=== PATIENT | male | born 1980 | race African-American/Black ===

== ENCOUNTER 2019-10-03 22:43 | Observation (INO) | payer SELFPAY ==
[2019-10-03] MEDS ORDERED: NA CHLORIDE 0.9% 1,000 ML ONE (23:13)
[2019-10-03] MEDS ORDERED: ASPIRIN 81 MG CHEWABLE TABLET ONE (23:13)
[2019-10-03 23:14] LABS: Absolute Lymphocytes (CBC) 4.5 K/uL (0.7-4.9); Basophils % 0.2 % (0-1.3); Hematocrit 42.4 % (39.6-49.0); MPV 8.7 fL (7.6-11.3); RBC Red Blood Cell Count 4.73 M/uL (4.33-5.43)
[2019-10-03 23:15] LABS: Protime INR 1.01
[2019-10-03 23:46] LABS: ALT/SGPT 42 U/L (12-78); AST/SGOT 25 U/L (15-37); Albumin 3.6 g/dL (3.4-5.0); Alkaline Phosphatase 81 U/L (45-117); BUN Blood Urea Nitrogen 12 mg/dL (7-18); Bicarbonate 30 mmol/L (21-32); Bilirubin Direct < 0.1 mg/dL (0-0.2); Bilirubin Total 0.3 mg/dL (0.2-1.0); Glucose Level 164 mg/dL (74-106); Lipase 156 U/L (73-393); Magnesium 1.9 mg/dL (1.8-2.4); NT PRO-BNP 15 pg/mL (<125); Potassium 3.6 mmol/L (3.5-5.1); Protein, Total 7.4 g/dL (6.4-8.2); Sodium Level 141 mmol/L (136-145); Troponin (Emerg Dept Use Only) < 0.02 ng/mL (0.0-0.045)
[2019-10-04] LABS: Blood Morphology Comment NOT SEEN (NOT SEEN); Platelet Estimate ADEQ
[2019-10-04 00:13] LABS: Barbiturates NEGATIVE (NEGATIVE); Benzodiazepines NEGATIVE (NEGATIVE); Cocaine NEGATIVE (NEGATIVE); METHAMPHETAM NEGATIVE (NEGATIVE); Methadone NEGATIVE (NEGATIVE); Opiates POSITIVE (NEGATIVE); Phencyclidine NEGATIVE (NEGATIVE); THC Cannibis NEGATIVE (NEGATIVE)
--- NOTE | 2019-10-04 00:13 | ER ---
Nurse's Notes [facility] Name: Ricky Garvin Age: 39 yrs Sex: Male : 1980 Arrival Date: 10/03/2019 Time: 22:45 Bed 17 Private MD: Diagnosis: Essential (primary) hypertension;Chest pain, unspecified;Tachycardia, unspecified Presentation: 10/03 22:52 Presenting complaint: Patient states: stabbing in center of chest that started at 2130. ls4 Pt states it doesn't hurt much when he is sitting still but when he moves it gets up to a 5/10. Transition of care: patient was not received from another setting of care. Onset of symptoms was October 03, 2019 at 22:53. Risk Assessment: Do you want to hurt yourself or someone else? Patient reports no desire to harm self or others. Initial Sepsis Screen: Does the patient meet any 2 criteria? No. Patient's initial sepsis screen is negative. Does the patient have a suspected source of infection? No. Patient's initial sepsis screen is negative. Care prior to arrival: None. 22:52 Method Of Arrival: Ambulatory ls4 22:52 Acuity: HANK 3 ls4 Triage Assessment: 22:53 General: Appears in no apparent distress. Behavior is calm, cooperative. Pain: ls4 Complains of pain in mid-sternal area Pain currently is 2 out of 10 on a pain scale. Quality of pain is described as stabbing, Pain began suddenly, 1 hour ago. Cardiovascular: Reports chest pain, Denies diaphoresis, fatigue, lightheadedness, nausea, palpitations, shortness of breath, syncope, vomiting, Capillary refill < 3 seconds JVD is absent Patient's skin is warm and dry. Respiratory: Airway is patent Respiratory effort is even, unlabored, Respiratory pattern is regular, symmetrical, Breath sounds are clear. GI: No deficits noted. : No deficits noted. Derm: Skin is pink, warm \T\ dry. Musculoskeletal: No deficits noted. Historical: - Allergies: 22:53 Azithromycin; ls4 - Home Meds: 22:53 None [Active]; ls4 - PMHx: 22:53 None; ls4 - PSHx: 22:53 None; ls4 - Immunization history:: Adult Immunizations up to date. - Coronavirus screen:: The patient has NOT traveled to [place], [place], or [place] in the past 14 days. The patient has NOT had contact with known/suspected case of Coronavirus? Proceed with normal triage procedures. - Social history:: Smoking status: Patient reports the use of cigarette tobacco products, smokes one pack cigarettes per day. - Family history:: not pertinent. - Ebola Screening: : No symptoms or risks identified at this time. Screenin:58 Abuse screen: Denies threats or abuse. Denies injuries from another. Nutritional ls4 screening: No deficits noted. Tuberculosis screening: No symptoms or risk factors identified. Fall Risk None identified. Assessment: 23:20 Reassessment: Patient appears in no apparent distress at this time. Patient and/or ch family updated on plan of care and expected duration. Pain level reassessed. Patient is alert, oriented x 3, equal unlabored respirations, skin warm/dry/pink. 23:20 General: Appears in no apparent distress. uncomfortable. ls4 23:20 Pain: Complains of pain in chest and mid-sternal area Pain does not radiate. Pain ls4 currently is 2 out of 10 on a pain scale. Neuro: No deficits noted. Cardiovascular: Reports chest pain, Denies diaphoresis, fatigue, lightheadedness, nausea, palpitations, shortness of breath, syncope, vomiting, Heart tones S1 S2 Capillary refill < 3 seconds Clubbing of nail beds is absent Patient's skin is warm and dry. Rhythm is regular. Respiratory: No deficits noted. GI: No deficits noted. : No deficits noted. Derm: No deficits noted. 10/04 00:20 Reassessment: Patient appears in no apparent distress at this time. Patient and/or ch family updated on plan of care and expected duration. Pain level reassessed. Patient is alert, oriented x 3, equal unlabored respirations, skin warm/dry/pink. 01:24 Reassessment: Patient appears in no apparent distress at this time. [employer] is down, ch awaiting pt to go upstairs till pt orders can be accessed. 02:08 Reassessment: Patient appears in no apparent distress at this time. Patient and/or ls4 family updated on plan of care and expected duration. Pain level reassessed. Patient is alert, oriented x 3, equal unlabored respirations, skin warm/dry/pink. Pain: Complains of pain in chest and mid-sternal area Pain does not radiate. Pain currently is 2 out of 10 on a pain scale. Vital Signs: 10/03 22:53 BP 132 / 89; Pulse 132; Resp 16; Temp 98.1(O); Pulse Ox 100% on R/A; Weight 90.72 kg; ls4 Height 5 ft. 9 in. (175.26 cm); Pain 2/10; 10/04 00:21 BP 137 / 78; Pulse 109; Resp 16; Temp 98.2(O); Pulse Ox 100% on R/A; Pain 2/10; ls4 01:48 BP 118 / 73; Pulse 83; Resp 16; Temp 98.6; Pulse Ox 99% on R/A; Pain 0/10; ch 02:00 BP 114 / 75; Pulse 82; Resp 14; Temp 98.2(O); Pulse Ox 100% on R/A; Pain 2/10; ls4 10/03 22:53 Body Mass Index 29.54 (90.72 kg, 175.26 cm) ls4 ED Course: 10/03 22:45 Patient arrived in ED. jg7 22:48 Nikunj Segundo MD is Attending Physician. elif 22:52 Akanksha Colin RN is Primary Nurse. ls4 22:53 Radiology exam delayed due to ekg. 22:53 Triage completed. ls4 22:58 Patient has correct armband on for positive identification. Placed in gown. Bed in low ls4 position. Call light in reach. Side rails up X2. press tender long goods on. Pulse ox on. NIBP on. Warm blanket given. Diet: Patient is NPO. 22:58 Arm band placed on. ls4 22:58 EKG completed in triage. Results shown to MD. ls4 22:58 No provider procedures requiring assistance completed. Inserted saline lock: 20 gauge ls4 in right antecubital area, using aseptic technique. Patient maintains SpO2 saturation greater than 95% on room air. 23:32 UDS Sent. ls4 23:32 Lipase Sent. ls4 23:33 Urine Dipstick--Ancillary (enter results) Sent. ls4 23:33 Basic Metabolic Panel Sent. ls4 23:33 CBC with Diff Sent. ls4 23:33 LFT's Sent. ls4 23:33 Magnesium Sent. ls4 23:33 NT PRO-BNP Sent. ls4 23:33 PT-INR Sent. ls4 23:33 Troponin (emerg Dept Use Only) Sent. ls4 23:33 XRAY Chest (1 view) Sent. ls4 10/04 00:12 Yasir Nesbitt is Hospitalizing Provider. elif 02:14 Patient admitted, IV remains in place. intact, No redness/swelling at site. ls4 Administered Medications: 10/03 23:30 Drug: Lopressor (metoprolol TARTRATE) 50 mg Route: PO; ls4 10/04 00:00 Follow up: Response: No adverse reaction ls4 10/03 23:32 Drug: NS 0.9% 1000 ml Route: IV; Rate: 1 bolus; Site: right antecubital; ls4 10/04 00:30 Follow up: IV Status: Completed infusion; IV Intake: 1000ml ls4 10/03 23:32 Drug: Aspirin Chewable Tablet 324 mg Route: PO; ls4 10/04 00:00 Follow up: Response: No adverse reaction ls4 00:30 Drug: Lovenox 90 mg Route: Sub-Q; Site: left lower abdomen; ls4 01:00 Follow up: Response: No adverse reaction ls4 Intake: 00:30 IV: 1000ml; Total: 1000ml. ls4 Outcome: 00:13 Decision to Hospitalize by Provider. elif 02:12 Admitted to Tele accompanied by nurse, room 214, on monitor, with chart, Report called ls4 to larissa 02:12 Condition: good 02:12 Discharge instructions given to patient, family, Instructed on the need for admit. 02:17 Patient left the ED. ls4 Signatures: Dorothy Braun, RN Nikunj Bartholomew ch, MD MD cha Faul, Justin jf Stewart, Lisa, RN RN ls4 Jacquelin Vivas jg7 Corrections: (The following items were deleted from the chart) 00:19 02/04 22:53 BP 132 / 89; Pulse 132bpm; Resp 16bpm; Pulse Ox 100% RA; Temp 98.1F Oral; ls4 Pain 2/10; ls4
--- NOTE | 2019-10-04 00:14 | EDPHYS ---
Physician Documentation [facility] Name: Ricky Garvin Age: 39 yrs Sex: Male : 1980 Arrival Date: 10/03/2019 Time: 22:45 Bed 17 Private MD: ED Physician Nikunj Segundo HPI: 10/03 23:04 This 39 yrs old Black Male presents to ER via Ambulatory with complaints of Chest Pain. elif 23:04 This 39 yrs old Black Male presents to ER via Ambulatory with complaints of Chest Pain. elif 23:04 The patient or guardian reports chest pain that is located primarily in the substernal elif area, anterior chest wall, left. Onset: just prior to arrival. The pain does not radiate. Associated signs and symptoms: The patient has no apparent associated signs or symptoms. The chest pain is described as sharp. Modifying factors: The symptoms are alleviated by remaining still, the symptoms are aggravated by movement, twisting torso. Severity of pain: At its worst the pain was mild in the emergency department the pain is unchanged. The patient has not experienced similar symptoms in the past. Historical: - Allergies: 22:53 Azithromycin; ls4 - Home Meds: 22:53 None [Active]; ls4 - PMHx: 22:53 None; ls4 - PSHx: 22:53 None; ls4 - Immunization history:: Adult Immunizations up to date. - Coronavirus screen:: The patient has NOT traveled to [place], [place], or [place] in the past 14 days. The patient has NOT had contact with known/suspected case of Coronavirus? Proceed with normal triage procedures. - Social history:: Smoking status: Patient reports the use of cigarette tobacco products, smokes one pack cigarettes per day. - Family history:: not pertinent. - Ebola Screening: : No symptoms or risks identified at this time. ROS: 23:04 Constitutional: Negative for fever, chills, and weight loss, Eyes: Negative for injury, elif pain, redness, and discharge, ENT: Negative for injury, pain, and discharge, Neck: Negative for injury, pain, and swelling, Cardiovascular: Negative for chest pain, palpitations, and edema, Respiratory: Negative for shortness of breath, cough, wheezing, and pleuritic chest pain, Abdomen/GI: Negative for abdominal pain, nausea, vomiting, diarrhea, and constipation, Back: Negative for injury and pain, : Negative for injury, bleeding, discharge, and swelling, MS/Extremity: Negative for injury and deformity, Skin: Negative for injury, rash, and discoloration, Neuro: Negative for headache, weakness, numbness, tingling, and seizure, Psych: Negative for depression, anxiety, suicide ideation, homicidal ideation, and hallucinations, Allergy/Immunology: Negative for hives, rash, and allergies, Endocrine: Negative for neck swelling, polydipsia, polyuria, polyphagia, and marked weight changes, Hematologic/Lymphatic: Negative for swollen nodes, abnormal bleeding, and unusual bruising. Exam: 23:06 Constitutional: This is a well developed, well nourished patient who is awake, alert, elif and in no acute distress. Head/Face: Normocephalic, atraumatic. Eyes: Pupils equal round and reactive to light, extra-ocular motions intact. Lids and lashes normal. Conjunctiva and sclera are non-icteric and not injected. Cornea within normal limits. Periorbital areas with no swelling, redness, or edema. ENT: Nares patent. No nasal discharge, no septal abnormalities noted. Tympanic membranes are normal and external auditory canals are clear. Oropharynx with no redness, swelling, or masses, exudates, or evidence of obstruction, uvula midline. Mucous membranes moist. Neck: Trachea midline, no thyromegaly or masses palpated, and no cervical lymphadenopathy. Supple, full range of motion without nuchal rigidity, or vertebral point tenderness. No Meningismus. Chest/axilla: Normal chest wall appearance and motion. Nontender with no deformity. No lesions are appreciated. Respiratory: Lungs have equal breath sounds bilaterally, clear to auscultation and percussion. No rales, rhonchi or wheezes noted. No increased work of breathing, no retractions or nasal flaring. Abdomen/GI: Soft, non-tender, with normal bowel sounds. No distension or tympany. No guarding or rebound. No evidence of tenderness throughout. Back: No spinal tenderness. No costovertebral tenderness. Full range of motion. Male : Normal genitalia with no discharge or lesions. Skin: Warm, dry with normal turgor. Normal color with no rashes, no lesions, and no evidence of cellulitis. MS/ Extremity: Pulses equal, no cyanosis. Neurovascular intact. Full, normal range of motion. Neuro: Awake and alert, GCS 15, oriented to person, place, time, and situation. Cranial nerves II-XII grossly intact. Motor strength 5/5 in all extremities. Sensory grossly intact. Cerebellar exam normal. Normal gait. Psych: Awake, alert, with orientation to person, place and time. Behavior, mood, and affect are within normal limits. 23:06 Cardiovascular: Rate: tachycardic, Rhythm: regular, Pulses: Pulses are 4+ in bilateral radial, brachial, femoral, popliteal, posterior tibial and and dorsalis pedis arteries.. Heart sounds: normal, Edema: is not appreciated, JVD: is not appreciated. Vital Signs: 22:53 BP 132 / 89; Pulse 132; Resp 16; Temp 98.1(O); Pulse Ox 100% on R/A; Weight 90.72 kg; ls4 Height 5 ft. 9 in. (175.26 cm); Pain 2/10; 10/04 00:21 BP 137 / 78; Pulse 109; Resp 16; Temp 98.2(O); Pulse Ox 100% on R/A; Pain 2/10; ls4 01:48 BP 118 / 73; Pulse 83; Resp 16; Temp 98.6; Pulse Ox 99% on R/A; Pain 0/10; ch 02:00 BP 114 / 75; Pulse 82; Resp 14; Temp 98.2(O); Pulse Ox 100% on R/A; Pain 2/10; ls4 10/03 22:53 Body Mass Index 29.54 (90.72 kg, 175.26 cm) 4 MDM: 10/03 22:48 Patient medically screened. [facility] 23:06 Data reviewed: vital signs, nurses notes, lab test result(s), EKG, radiologic studies, [facility] CT scan, plain films. 10/03 22:49 Order name: Basic Metabolic Panel 10/03 22:49 Order name: CBC with Diff 10/03 22:49 Order name: LFT's 10/03 22:49 Order name: Magnesium 10/03 22:49 Order name: NT PRO-BNP 10/03 22:49 Order name: PT-INR 10/03 22:49 Order name: Troponin (emerg Dept Use Only) 10/03 23:04 Order name: Lipase [facility] 10/03 23:04 Order name: UDS [facility] 10/03 23:15 Order name: CBC with Automated Diff; Complete Time: 00:09 EDMS 10/03 23:16 Order name: Protime (+INR); Complete Time: 00:09 EDMS 10/03 23:21 Order name: Urine Dipstick--Ancillary (enter results) wi 10/03 23:46 Order name: Basic Metabolic Panel; Complete Time: 00:09 EDMS 10/03 23:46 Order name: Liver (Hepatic) Function; Complete Time: 00:09 EDMS 10/03 22:49 Order name: XRAY Chest (1 view) 10/03 22:49 Order name: EKG; Complete Time: 22:49 10/03 22:49 Order name: Cardiac monitoring; Complete Time: 22:59 10/03 22:49 Order name: EKG - Nurse/Tech; Complete Time: 22:59 10/03 22:49 Order name: IV Saline Lock; Complete Time: 22:59 10/03 23:46 Order name: Troponin (Emerg Dept Use Only); Complete Time: 00:09 EDCA 10/03 23:46 Order name: NT PRO-BNP; Complete Time: 00:09 EDMS 10/03 23:46 Order name: Magnesium; Complete Time: 00:09 EDCA 10/03 23:46 Order name: Lipase; Complete Time: 00:09 EDMS 10/04 00:01 Order name: Manual Differential; Complete Time: 00:09 EDMS 10/04 00:13 Order name: Urine Drug Screen; Complete Time: 00:13 EDCA 10/04 00:44 Order name: Urine Dipstick-Ancillary [facility] 10/03 22:49 Order name: Labs collected and sent; Complete Time: 23:00 10/03 22:49 Order name: O2 Per Protocol; Complete Time: 23:00 10/03 22:49 Order name: O2 Sat Monitoring; Complete Time: 23:00 ch Administered Medications: 23:30 Drug: Lopressor (metoprolol TARTRATE) 50 mg Route: PO; 4 10/04 00:00 Follow up: Response: No adverse reaction 4 10/03 23:32 Drug: NS 0.9% 1000 ml Route: IV; Rate: 1 bolus; Site: right antecubital; 4 10/04 00:30 Follow up: IV Status: Completed infusion; IV Intake: 1000ml 4 10/03 23:32 Drug: Aspirin Chewable Tablet 324 mg Route: PO; 4 10/04 00:00 Follow up: Response: No adverse reaction ls4 00:30 Drug: Lovenox 90 mg Route: Sub-Q; Site: left lower abdomen; ls4 01:00 Follow up: Response: No adverse reaction ls4 Disposition: 10/04/19 00:13 Hospitalization ordered by Yasir Nesbitt for Observation. Preliminary diagnosis are Essential (primary) hypertension, Chest pain, unspecified, Tachycardia, unspecified. - Bed requested for Telemetry/MedSurg (observation). - Status is Observation. ls4 - Condition is Fair. - Problem is new. - Symptoms have improved. Signatures: Dispatcher [employer] EDMS Dorothy Braun, RN Nikunj Bartholomew ch, MD MD cha Bryson, James, RN RN jb4 Akanksha Colin RN RN ls4 Corrections: (The following items were deleted from the chart) 00:18 00:13 Hospitalization Ordered by Yasir Nesbitt for Observation. Preliminary diagnosis jb4 is Essential (primary) hypertension; Chest pain, unspecified; Tachycardia, unspecified. Bed requested for Telemetry/MedSurg (observation). Status is Observation. Condition is Fair. Problem is new. Symptoms have improved. [facility] 02:17 00:18 10/04/2019 00:13 Hospitalization Ordered by Yasir Nesbitt for Observation. ls4 Preliminary diagnosis is Essential (primary) hypertension; Chest pain, unspecified; Tachycardia, unspecified. Bed requested for Telemetry/MedSurg (observation). Status is Observation. Condition is Fair. Problem is new. Symptoms have improved. jb4
[2019-10-04] MEDS ORDERED: ENOXAPARIN 100 MG/ML SYR SQ ONE (00:33)
[2019-10-04] MEDS ORDERED: METOPROLOL XL 50 MG TAB PO ONE (00:33)
[2019-10-04] MEDS ORDERED: METOPROLOL TAR 50 MG TAB ONE (00:37)
[2019-10-04 00:44] LABS: Urine Blood NEGATIVE (NEG); Urine Glucose NEGATIVE (NEG); Urine Protein NEGATIVE (NEG); Urine Specific Gravity 1.015 (1.005-1.030)
--- NOTE | 2019-10-04 00:46 | P.HP ---
Certification for Inpatient Patient admitted to: Observation With expected LOS: <2 Midnights Practitioner: I am a practitioner with admitting privileges, knowledge of patient current condition, hospital course, and medical plan of care. Services: Services provided to patient in accordance with Admission requirements found in Title 42 Section 412.3 of the Code of Federal Regulations Patient History Date of Service: 10/04/19 Reason for admission: Chest pain History of Present Illness: 39-year-old man with no known past medical history presented to the emergency department with a complaint of chest pain of onset a few hrs ago. Patient described a sharp anterior chest pain which occured at rest, maximum intensity 8/10, nonradiating, intermittent, no relieving factors, no response to aspirin. Initial troponin in the ED is negative. EKG demonstrated sinus tachycardia, no ischemic changes. Urine toxicology screen positive for opioid. Patient stated he took a dose of hydrocodone for his back pain a couple of days ago. He is a smoker. His heart rate was in the 130s in the ED. Patient is placed under observation for ACS rule out. Allergies azithromycin Allergy (Verified 10/04/19 03:09) Unknown Home Medications: Aspirin [Aspirin EC 81 MG] 81 mg PO DAILY #30 tablet.dr 10/04/19 Metoprolol Succinate 25 mg PO DAILY #30 tab.er.24h 10/04/19 Nicotine [Nicotine Patch] 1 each TD DAILY #14 patch.td24 10/04/19 Pravastatin Sodium [Pravachol] 20 mg PO DAILY #30 tablet 10/04/19 - Past Medical/Surgical History Diabetic: No -: None -: None - Family History Family History: Reviewed- Non-Contributory - Social History Smoking Status: Current every day smoker Alcohol use: Yes CD- Drugs: No Place of Residence: Home Review of Systems Other: General: No fever, no malaise, no unintentional weight loss. Eyes: No eye discharge, Respiratory: No cough, no shortness of breath. CVS: No palpitation, no lightheadedness. GI: No abdominal pain, no nausea, no vomit, no constipation, no diarrhea. Genitourinary: No dysuria, no urinary frequency, no incontinence, no hematuria. Musculoskeletal: No joint pains, or joint swelling, no gait instability. Neurology: No headache, no asymmetric weakness, no problem with swallowing. Except as documented, all other systems reviewed and negative. Physical Examination - Physical Exam General: Alert, In no apparent distress, Oriented x3 HEENT: Atraumatic, Normocephalic, Mucous membr. moist/pink, Sclerae nonicteric Neck: Supple, JVD not distended Respiratory: Clear to auscultation bilaterally, Normal air movement Cardiovascular: No edema, Regular rate/rhythm, Normal S1 S2 Capillary refill: <2 Seconds Gastrointestinal: Normal bowel sounds, Soft and benign, Non-distended, No tenderness Musculoskeletal: No swelling, No erythema Integumentary: No rashes Neurological: Normal speech, Normal strength at 5/5 x4 extr - Studies Laboratory Data (last 24 hrs) 10/03/19 23:04: Lipase Cancelled 10/03/19 23:00: PT 11.9, INR 1.01 10/03/19 23:00: WBC 7.6, Hgb 14.5, Hct 42.4, Plt Count 299 10/03/19 23:00: Sodium 141, Potassium 3.6, BUN 12, Creatinine 1.12, Glucose 164 H, Magnesium 1.9, Total Bilirubin 0.3, AST 25, ALT 42, Alkaline Phosphatase 81, Lipase 156 Assessment and Plan - Problems (Diagnosis) (1) Chest pain Status: Acute (2) Sinus tachycardia Status: Acute (3) Tobacco use Status: Acute - Plan Place under observation Trend troponin Start aspirin Pain management as needed Check lipid profile. Low cardiac risk factors. Low-dose metoprolol for sinus tachycardia - Advance Directives Does patient have a Living Will: No Does patient have a Durable POA for Healthcare: No
[2019-10-04] MEDS ORDERED: NITROGLYCERIN 0.4 MG/TAB SL PRN (03:07)
[2019-10-04] MEDS ORDERED: ACETAMINOPHEN 500 MG TAB PO PRN (03:07)
[2019-10-04] MEDS ORDERED: MORPHINE 4 MG/ML SYR IV PRN (03:07)
[2019-10-04 03:17] VITALS: BMI 29.7
[2019-10-04 03:24] LABS: HDL Cholesterol 38 mg/dL (40-60); Troponin I < 0.02 ng/mL (0.0-0.045)
[2019-10-04 03:40] LABS: LDL, Direct 132 mg/dL (100-129)
[2019-10-04 08:18] VITALS: BP 118/72; TEMP 97.1
--- NOTE | 2019-10-04 08:33 | RAD REPORT ---
EXAM DESCRIPTION: Jerald Single View10/03/2019 11:38 pm CLINICAL HISTORY: Chest pain COMPARISON: none FINDINGS: The lungs appear clear of acute infiltrate. The heart is normal size IMPRESSION: No acute abnormalities displayed
[2019-10-04] MEDS ORDERED: ASPIRIN EC 81 MG TAB PO SCH (09:00)
[2019-10-04] MEDS ORDERED: ENOXAPARIN 40 MG/0.4 ML SQ SCH (09:00)
[2019-10-04] MEDS ORDERED: METOPROLOL TAR 50 MG TAB PO SCH (09:00)
--- NOTE | 2019-10-04 09:10 | EKG ---
Test Date: 2019-10-03 Test Time: 22:53:50 Osteopathy Doctor: NEHEMIAH MEASUREMENT RESULTS: Intervals: Rate: 131 NV: 138 QRSD: 92 QT: 298 QTc: 440 [place]: P: 43 NV: 138 QRS: 38 T: 46 INTERPRETIVE STATEMENTS: Sinus tachycardia Otherwise normal ECG No previous ECG available for comparison Electronically Signed On 10-04-19 09:09:56 HANDLE AND VENT MACHINE OPERATOR by Luis Alfredo Ferrer
[2019-10-04 09:21] VITALS: O2SAT 100
--- NOTE | 2019-10-04 10:21 | P.DS ---
Admission Date: 10/04/19 Discharge Date: 10/04/19 Disposition: ROUTINE DISCHARGE Comment: Discharge Condition: FAIR Reason for Admission: Chest pain Brief History of Present Illness: History of Present Illness: 39-year-old man with no known past medical history presented to the emergency department with a complaint of chest pain of onset a few hrs ago. Patient described a sharp anterior chest pain which occured at rest, maximum intensity 8/10, nonradiating, intermittent, no relieving factors, no response to aspirin. Initial troponin in the ED is negative. EKG demonstrated sinus tachycardia, no ischemic changes. Urine toxicology screen positive for opioid. Patient stated he took a dose of hydrocodone for his back pain a couple of days ago. He is a smoker. His heart rate was in the 130s in the ED. Patient is placed under observation for ACS rule out. Hospital Course: Patient with history of tobacco use. No family history for gastric issues was admitted for atypical left-sided chest pain that was sharp. Pain resolved in the emergency room. The patient was admitted and placed on telemetry. He had no cardiac arrhythmia as well as no EKG changes. He remained chest pain-free. His cardiac enzymes were all negative. Patient workup shows mild elevated lipid profile with triglyceride 0410 on cholesterol 119. Need for lifestyle modification was discussed. Medication option was offered and patient agreeable to trial of Pravachol at this time. Risk of liver injury mentioned and discussed . follow-up in 3 months with PCP advised . Case management help with insurance application and free clinic infomation was provided. Need for tobacco cessation discussed. Patient is currently symptom-free will be discharged home today. On admission he was noted with transient tachycardia was started on low-dose metoprolol weeks significant improvement in his heart rate to the low 60s now. He describes symptoms of obstructive sleep apnea and advised to obtain a sleep study as outpatient Vital Signs/Physical Exam: Temp Pulse Resp BP Pulse Ox 97.1 F 67 17 118/72 100 10/04/19 08:00 10/04/19 08:00 10/04/19 08:00 10/04/19 08:00 10/04/19 08:00 General: Alert, In no apparent distress, Oriented x3 HEENT: Atraumatic, Normocephalic, PERRLA Neck: 2+ carotid pulse no bruit, JVD not distended Respiratory: Clear to auscultation bilaterally, Normal air movement Cardiovascular: No edema, Regular rate/rhythm, Normal S1 S2 Gastrointestinal: Normal bowel sounds, Soft and benign, Non-distended Musculoskeletal: No clubbing, No swelling Integumentary: No rashes, No breakdown Neurological: Normal speech, Normal strength at 5/5 x4 extr, Sensation intact Rectal: Normal Laboratory Data at Discharge: WBC 7.6 K/uL (4.3-10.9) 10/03/19 23:00 Hgb 14.5 g/dL (13.6-17.9) 10/03/19 23:00 Hct 42.4 % (39.6-49.0) 10/03/19 23:00 Plt Count 299 K/uL (152-406) 10/03/19 23:00 PT 11.9 SECONDS (9.5-12.5) 10/03/19 23:00 INR 1.01 10/03/19 23:00 Sodium 141 mmol/L (136-145) 10/03/19 23:00 Potassium 3.6 mmol/L (3.5-5.1) 10/03/19 23:00 BUN 12 mg/dL (7-18) 10/03/19 23:00 Creatinine 1.12 mg/dL (0.55-1.3) 10/03/19 23:00 Glucose 164 mg/dL (74-106) H 10/03/19 23:00 Magnesium 1.9 mg/dL (1.8-2.4) 10/03/19 23:00 Total Bilirubin 0.3 mg/dL (0.2-1.0) 10/03/19 23:00 AST 25 U/L (15-37) 10/03/19 23:00 ALT 42 U/L (12-78) 10/03/19 23:00 Alkaline Phosphatase 81 U/L (45-117) 10/03/19 23:00 Troponin I < 0.02 ng/mL (0.0-0.045) 10/04/19 06:32 Triglycerides 410 mg/dL (<150) H 10/04/19 02:30 Cholesterol 190 mg/dL (<200) 10/04/19 02:30 LDL Cholesterol Direct 132 mg/dL (100-129) H 10/04/19 02:30 HDL Cholesterol 38 mg/dL (40-60) L 10/04/19 02:30 Cholesterol/HDL Ratio 5.00 10/04/19 02:30 Lipase Cancelled 10/03/19 23:04 Home Medications: Aspirin [Aspirin EC 81 MG] 81 mg PO DAILY #30 tablet. 10/04/19 Metoprolol Succinate 25 mg PO DAILY #30 tab.er.24h 10/04/19 Nicotine [Nicotine Patch] 1 each TD DAILY #14 patch.td24 10/04/19 Pravastatin Sodium [Pravachol] 20 mg PO DAILY #30 tablet 10/04/19 New Medications: Aspirin [Aspirin EC 81 MG] 81 mg PO DAILY #30 tablet. Metoprolol Succinate 25 mg PO DAILY #30 tab.er.24h Nicotine [Nicotine Patch] 1 each TD DAILY #14 patch.td24 Pravastatin Sodium [Pravachol] 20 mg PO DAILY #30 tablet Patient Discharge Instructions: follow up at PCP or free clinic in 1 week advised Diet: Low sodium Activity: Ad kalyn
== END 2019-10-04 11:00 | disposition home or self-care (01) ==
LOC: ER 22:43 → 2ND 10-04 00:52
PROVIDERS: ADMIT Internal Medicine; ATTEND Internal Medicine
DX: R07.9 Chest pain, unspecified (principal); R00.0 Tachycardia, unspecified; F17.200 Nicotine dependence, unspecified, uncomplicated
CPT/HCPCS: 36415; 71045; 80048; 80061; 80076; 80307; 81003; 83690; 83735; 83880; 84484; 85025; 85610; 93005; 96360; 96372; 99285; G0378; J1650; J7030

== ENCOUNTER 2020-12-29 19:38 | Emergency (ER) | payer SELFPAY ==
[2020-12-29] MEDS ORDERED: MORPHINE 4 MG/ML SYR ONE (22:45)
--- NOTE | 2020-12-30 00:48 | ER ---
Nurse's Notes [facility] Name: Ricky Garvin Age: 40 yrs Sex: Male : 1980 Arrival Date: 12/29/2020 Time: 19:42 Bed 24 Private MD: Diagnosis: Sciatica;Lumbar Degenerative Discs Presentation: 12/29 20:11 Chief complaint: Patient states: Sciatic nerve pain on the R side since Wednesday. Was ca1 stretching, walked up the stairs and it went to the L side. L lower back pain radiating down to the L leg. Coronavirus screen: Client denies travel out of the [place] in the last 14 days. At this time, the client does not indicate any symptoms associated with coronavirus-19. Ebola Screen: Patient negative for fever greater than or equal to 101.5 degrees Fahrenheit, and additional compatible Ebola Virus Disease symptoms Patient denies exposure to infectious person. Patient denies travel to an Ebola-affected area in the 21 days before illness onset. No symptoms or risks identified at this time. Initial Sepsis Screen: Does the patient meet any 2 criteria? No. Patient's initial sepsis screen is negative. Does the patient have a suspected source of infection? No. Patient's initial sepsis screen is negative. Risk Assessment: Do you want to hurt yourself or someone else? Patient reports no desire to harm self or others. Onset of symptoms was December 29, 2020. 20:11 Method Of Arrival: Ambulatory ca1 20:11 Acuity: HANK 4 ca1 Historical: - Allergies: 20:13 Azithromycin; ca1 - Home Meds: 20:13 None [Active]; ca1 - PMHx: 20:13 None; ca1 - PSHx: 20:13 None; ca1 - Immunization history:: Client reports receiving the 2nd dose of the Covid vaccine, Client reports receiving the 1st dose of the Covid vaccine, Flu vaccine is not up to date. - Social history:: Smoking status: Patient reports the use of cigarette tobacco products, smokes one-half pack cigarettes per day. Screenin:00 Abuse screen: Denies threats or abuse. Denies injuries from another. Nutritional rr5 screening: No deficits noted. Tuberculosis screening: No symptoms or risk factors identified. Fall Risk None identified. Total Carlson Fall Scale indicates No Risk (0-24 pts). Assessment: 21:00 General: Appears in no apparent distress. uncomfortable, Behavior is calm, cooperative, rr5 appropriate for age. 21:00 Pain: Complains of pain in left low back Pain radiates to left leg Pain currently is 7 rr5 out of 10 on a pain scale. Quality of pain is described as aching, Pain began gradually, Is intermittent. Neuro: Level of Consciousness is awake, alert, obeys commands, Oriented to person, place, time. Cardiovascular: Capillary refill < 3 seconds Patient's skin is warm and dry. Respiratory: Airway is patent Respiratory effort is even, unlabored, Respiratory pattern is regular, symmetrical. GI: No signs and/or symptoms were reported involving the gastrointestinal system. : No signs and/or symptoms were reported regarding the genitourinary system. EENT: No signs and/or symptoms were reported regarding the EENT system. Derm: Skin temperature is warm. Musculoskeletal: Capillary refill < 3 seconds, Reports pain in left leg. 22:00 Reassessment: Patient appears in no apparent distress at this time. Patient and/or rr5 family updated on plan of care and expected duration. Pain level reassessed. Patient is alert, oriented x 3, equal unlabored respirations, skin warm/dry/pink. 23:00 Reassessment: Patient appears in no apparent distress at this time. Patient is alert, rr5 oriented x 3, equal unlabored respirations, skin warm/dry/pink. awaiting for results. 12/30 00:57 Reassessment: Patient appears in no apparent distress at this time. Patient and/or iw family updated on plan of care and expected duration. Pain level reassessed. Patient is alert, oriented x 3, equal unlabored respirations, skin warm/dry/pink. Patient states feeling better. Patient states symptoms have improved. Vital Signs: 12/29 20:11 BP 147 / 83; Pulse 96; Resp 16 S; Temp 97.3; Pulse Ox 99% on R/A; Weight 88 kg (R); ca1 Height 5 ft. 9 in. (175.26 cm) (R); Pain 8/10; 22:00 BP 149 / 95; Pulse 95; Resp 17; Pulse Ox 100% ; rr5 23:00 BP 141 / 85; Pulse 90; Resp 19; Pulse Ox 98% ; rr5 20:11 Body Mass Index 28.65 (88.00 kg, 175.26 cm) ca1 ED Course: 19:42 Patient arrived in ED. bp1 20:13 Triage completed. ca1 20:13 Arm band placed on right wrist. ca1 20:49 Miko Cha, RN is Primary Nurse. rr5 21:00 Patient has correct armband on for positive identification. Bed in low position. rr5 21:03 Meng Mendoza MD is Attending Physician. mh7 22:30 CT Lumbar Spine Wo Con In Process Unspecified. EDMS 12/30 00:45 Isaías Rainey MD is Referral Physician. mh7 00:57 No provider procedures requiring assistance completed. Patient did not have IV access iw during this emergency room visit. Administered Medications: 12/29 22:27 Drug: morphine 4 mg {Note: rass 0.} Route: IM; Site: left gluteus; rr5 Outcome: 12/30 00:47 Discharge ordered by . mh7 00:57 Discharged to home ambulatory. iw 00:57 Condition: good 00:57 Discharge instructions given to patient, Instructed on discharge instructions, follow up and referral plans. medication usage, Demonstrated understanding of instructions, follow-up care, medications, Prescriptions given X 3. 00:58 Patient left the ED. iw Signatures: Dispatcher [employer] EDWY Radha Ortiz RN RN Miko Cha, RN RN rr5 Maame Gan RN RN [facility] Meng Mendoza MD MD 7
--- NOTE | 2020-12-30 00:48 | EDPHYS ---
Physician Documentation [facility] Name: Ricky Garvin Age: 40 yrs Sex: Male : 1980 Arrival Date: 12/29/2020 Time: 19:42 Bed 24 Private MD: ED Physician Meng Mendoza HPI: 12/29 22:14 This 40 yrs old Black Male presents to ER via Ambulatory with complaints of Sciatic mh7 Nerve Pain, Back Pain. 22:14 The patient presents with pain that is acute, with no known mechanism of injury. The mh7 symptoms are located in the low back. Onset: The symptoms/episode began/occurred 5 day(s) ago. 22:14 The pain radiates to the right leg and left leg. mh7 Historical: - Allergies: 20:13 Azithromycin; ca1 - Home Meds: 20:13 None [Active]; ca1 - PMHx: 20:13 None; ca1 - PSHx: 20:13 None; ca1 - Immunization history:: Client reports receiving the 2nd dose of the Covid vaccine, Client reports receiving the 1st dose of the Covid vaccine, Flu vaccine is not up to date. - Social history:: Smoking status: Patient reports the use of cigarette tobacco products, smokes one-half pack cigarettes per day. ROS: 12/30 00:41 Constitutional: Negative for fever, chills, and weight loss, Eyes: Negative for injury, mh7 pain, redness, and discharge, ENT: Negative for injury, pain, and discharge, Neck: Negative for injury, pain, and swelling, Cardiovascular: Negative for chest pain, palpitations, and edema, Respiratory: Negative for shortness of breath, cough, wheezing, and pleuritic chest pain, Abdomen/GI: Negative for abdominal pain, nausea, vomiting, diarrhea, and constipation, : Negative for injury, bleeding, discharge, and swelling, Skin: Negative for injury, rash, and discoloration, Neuro: Negative for headache, weakness, numbness, tingling, and seizure, Psych: Negative for depression, anxiety, suicide ideation, homicidal ideation, and hallucinations, Allergy/Immunology: Negative for hives, rash, and allergies, Endocrine: Negative for neck swelling, polydipsia, polyuria, polyphagia, and marked weight changes, Hematologic/Lymphatic: Negative for swollen nodes, abnormal bleeding, and unusual bruising. Exam: 00:41 Head/Face: Normocephalic, atraumatic. Eyes: Pupils equal round and reactive to light, mh7 extra-ocular motions intact. Lids and lashes normal. Conjunctiva and sclera are non-icteric and not injected. Cornea within normal limits. Periorbital areas with no swelling, redness, or edema. Neck: Trachea midline, no thyromegaly or masses palpated, and no cervical lymphadenopathy. Supple, full range of motion without nuchal rigidity, or vertebral point tenderness. No Meningismus. Chest/axilla: Normal chest wall appearance and motion. Nontender with no deformity. No lesions are appreciated. Cardiovascular: Regular rate and rhythm with a normal S1 and S2. No gallops, murmurs, or rubs. Normal PMI, no JVD. No pulse deficits. Respiratory: Lungs have equal breath sounds bilaterally, clear to auscultation and percussion. No rales, rhonchi or wheezes noted. No increased work of breathing, no retractions or nasal flaring. Abdomen/GI: Soft, non-tender, with normal bowel sounds. No distension or tympany. No guarding or rebound. No evidence of tenderness throughout. 00:41 Skin: Warm, dry with normal turgor. Normal color with no rashes, no lesions, and no evidence of cellulitis. MS/ Extremity: Pulses equal, no cyanosis. Neurovascular intact. Full, normal range of motion. Neuro: Awake and alert, GCS 15, oriented to person, place, time, and situation. Cranial nerves II-XII grossly intact. Motor strength 5/5 in all extremities. Sensory grossly intact. Cerebellar exam normal. Normal gait. Psych: Awake, alert, with orientation to person, place and time. Behavior, mood, and affect are within normal limits. 00:41 Constitutional: The patient appears in no acute distress, alert, awake, uncomfortable. 00:41 Back: pain, that is moderate, of the lumbar area, ROM is painful, with all movement, normal spinal alignment noted, CVA tenderness, is absent, vertebral tenderness, is appreciated at lumbar area, muscle spasm, is appreciated in the lumbar area, Straight leg raises: pain bilaterally. Vital Signs: 12/29 20:11 BP 147 / 83; Pulse 96; Resp 16 S; Temp 97.3; Pulse Ox 99% on R/A; Weight 88 kg (R); ca1 Height 5 ft. 9 in. (175.26 cm) (R); Pain 8/10; 22:00 BP 149 / 95; Pulse 95; Resp 17; Pulse Ox 100% ; rr5 23:00 BP 141 / 85; Pulse 90; Resp 19; Pulse Ox 98% ; rr5 20:11 Body Mass Index 28.65 (88.00 kg, 175.26 cm) ca1 MDM: 12/30 00:41 Differential diagnosis: arthritis, chronic back pain, Fracture Osteoarthritis ruptured mh7 disc, vertebral fracture. Data reviewed: vital signs, nurses notes, old medical records, radiologic studies, CT scan. Data interpreted: Pulse oximetry: on room air is 98 %. Interpretation: normal. Counseling: I had a detailed discussion with the patient and/or guardian regarding: the historical points, exam findings, and any diagnostic results supporting the discharge/admit diagnosis, the presence of at least one elevated blood pressure reading (>120/80) during this emergency department visit, radiology results, the need for outpatient follow up, to return to the emergency department if symptoms worsen or persist or if there are any questions or concerns that arise at home. Response to treatment: the patient's symptoms have markedly improved after treatment. 00:47 Patient medically screened. mh7 12/29 21:53 Order name: CT Lumbar Spine Wo Con [facility] Administered Medications: 12/29 22:27 Drug: morphine 4 mg {Note: rass 0.} Route: IM; Site: left gluteus; rr5 Disposition: 12/30/20 00:47 Discharged to Home. Impression: Sciatica, Lumbar Degenerative Discs. - Condition is Stable. - Discharge Instructions: Back Injury Prevention, [id number], Degenerative Disk Disease, Sciatica, [id number], Back Exercises, [id number]. - Prescriptions for ketorolac 10 mg Oral tablet - take 1 tablet by ORAL route every 6 hours As needed not to exceed 40 mg in 24hrs; 15 tablet. Cyclobenzaprine 10 mg Oral Tablet - take 1 tablet by ORAL route every 8 hours As needed; 15 tablet. Medrol (Morris) 4 mg Oral Tablets, Dose Pack - take 1 tablet by ORAL route as directed - follow package instructions; 1 packet. - Medication Reconciliation Form, Thank You Letter, Antibiotic Education, Prescription Opioid Use form. - Follow up: Private Physician; When: 1 - 2 days; Reason: Worsening of condition, Recheck today's complaints, Continuance of care, Re-evaluation by your physician. Follow up: Isaías Rainey MD; When: 2 - 3 days; Reason: Worsening of condition, Recheck today's complaints. - Problem is an acute exacerbation. - Symptoms have improved. Signatures: Dispatcher [employer] EDMS Radha Ortiz RN RN Miko Cha RN RN rr5 Maame Gan RN RN ca1 Holmes, Maurice, MD MD mh7 Corrections: (The following items were deleted from the chart) 12/30 00:58 00:47 12/30/2020 00:47 Discharged to Home. Impression: Sciatica; Lumbar Degenerative iw Discs. Condition is Stable. Forms are Medication Reconciliation Form, Thank You Letter, Antibiotic Education, Prescription Opioid Use. Follow up: Private Physician; When: 1 - 2 days; Reason: Worsening of condition, Recheck today's complaints, Continuance of care, Re-evaluation by your physician. Follow up: Isaías Rainey; When: 2 - 3 days; Reason: Worsening of condition, Recheck today's complaints. Problem is an acute exacerbation. Symptoms have improved. mh7
[2020-12-30 01:03] VITALS: TEMP 97.3
[2020-12-30 01:06] VITALS: BP 141/85; O2SAT 98
--- NOTE | 2020-12-30 15:49 | RAD REPORT ---
EXAM DESCRIPTION: CT of the lumbar spine without contrast. CLINICAL HISTORY: Pain; radiculopathy COMPARISON: None available TECHNIQUE: Axial CT of the lumbar spine obtained without contrast. This exam was performed according to our departmental dose-optimization program, which includes automated exposure control, adjustment of the mA and/or kV according to patient size and/or use of iterative reconstruction technique. FINDINGS: Alignment of the lumbar spine is maintained without evidence of subluxation. No fracture identified. Vertebral body height preserved. Prevertebral soft tissues are unremarkable. T12/L1: Intervertebral disc height preserved. No central canal nor neural foraminal narrowing. L1/L2: Intervertebral disc height preserved. No central canal nor neural foraminal narrowing. L2/L3: ntervertebral disc height preserved. Minimal posterior disc bulge. No central canal nor neural foraminal narrowing. L3/L4: Intervertebral disc height preserved. Broad-based posterior disc bulge. Minimal endplate spond ylosis. Mild bilateral neural foraminal narrowing. Narrowing of the spinal canal to 8 mm. L4/L5: Mild loss of intervertebral disc height. Broad-based posterior disc bulge. Minimal endplate sp ondylosis. Mild bilateral neural foraminal narrowing. Narrowing of the spinal canal to 8 mm. L5/S1: Intervertebral disc height preserved. Mild broad-based posterior disc bulge. Mild bilateral ne ural foraminal narrowing. No definite central canal narrowing. Aortoiliac atherosclerosis. No acute abnormalities identified in the visualized abdominal soft tissue s. IMPRESSION: 1. No acute fracture or subluxation of the lumbar spine. 2. Mild multilevel degenerative changes, most severe at L3/4 and L4/5. Electronically signed by: John Briones 12/29/2020 10:55 PM CDT Due to temporary technical issues with the PACS/Fluency reporting system, reports are being signed by the in house radiologists without review as a courtesy to insure prompt reporting. The interpreting radiologist is fully responsible for the content of the report.
== END 2020-12-30 00:58 | disposition home or self-care (01) ==
LOC: ER 19:38
DX: M54.30 Sciatica, unspecified side (principal); M51.36 Other intervertebral disc degeneration, lumbar region; F17.210 Nicotine dependence, cigarettes, uncomplicated; Z88.3 Allergy status to other anti-infective agents
CPT/HCPCS: 72131; 96372; 99283

== ENCOUNTER 2021-11-06 13:25 | Emergency (ER) | payer SELFPAY ==
--- NOTE | 2021-11-06 13:47 | EDPHYS ---
Physician Documentation [facility] Name: Ricky Garvin Age: 41 yrs Sex: Male : 1980 Arrival Date: 11/06/2021 Time: 13:28 Bed 20 Private MD: ED Physician Roger Prieto HPI: 11/06 13:30 This 41 yrs old Black Male presents to ER via Ambulatory with complaints of Bloody ms3 Stools. 13:30 The patient presents to the emergency department with rectal bleeding, a small amount, ms3 bright red blood with bowel movement, 2 times since symptom onset. Onset: The symptoms/episode began/occurred yesterday. Abdominal pain: none is appreciated. Modifying factors: The symptoms are alleviated by nothing, the symptoms are aggravated by nothing. Associated signs and symptoms: The patient has no apparent associated signs or symptoms, Pertinent negatives: chest pain, dizziness at rest, dizziness when standing, shortness of breath, syncope, near-syncope. 41-year-old male with past medical history of herniated disc presents for bloody stool yesterday and once today. Patient states he noted blood when wiping and a small amount in the toilet. Patient denies abdominal pain, nausea, vomiting, fevers, chills, shortness of breath, chest pain. Patient denies alleviating or inciting factors.. Historical: - Allergies: 13:32 Azithromycin; ab2 - Home Meds: 13:32 gabapentin oral [Active]; Hydrocodone-Acetaminophen 5/500 Oral [Active]; ab2 - PMHx: 13:32 Herniated Disc; ab2 - PSHx: 13:32 None; ab2 - Immunization history:: Adult Immunizations up to date. - Social history:: Smoking status: Patient reports the use of cigarette tobacco products, denies chronic smoking, but will smoke occasionally. ROS: 13:30 Constitutional: Negative for fever, and chills. Eyes: Negative for injury, pain, ms3 redness, and discharge, ENT: Negative for injury, pain, and discharge, Neck: Negative for injury, pain, and swelling, Cardiovascular: Negative for chest pain, and palpitations. Respiratory: Negative for shortness of breath, cough, wheezing, and pleuritic chest pain, Back: Negative for injury and pain, MS/Extremity: Negative for injury and deformity, Skin: Negative for injury, rash, and discoloration. 13:30 Abdomen/GI: Positive for rectal bleeding. Exam: 13:30 Constitutional: This is a well developed, well nourished patient who is awake, alert, ms3 and in no acute distress. Head/Face: Normocephalic, atraumatic. Neck: Trachea midline, no cervical lymphadenopathy. Supple, full range of motion without nuchal rigidity, or vertebral point tenderness. No Meningismus. Chest/axilla: Normal chest wall appearance and motion. Nontender with no deformity. Cardiovascular: Regular rate and rhythm with a normal S1 and S2. No gallops, murmurs, or rubs. Normal PMI, no JVD. No pulse deficits. Respiratory: Lungs have equal breath sounds bilaterally, clear to auscultation and percussion. No rales, rhonchi or wheezes noted. No increased work of breathing, no retractions or nasal flaring. Back: No spinal tenderness. No costovertebral tenderness. Full range of motion. Skin: Warm, dry with normal turgor. Normal color with no rashes, no lesions, and no evidence of cellulitis. Psych: Awake, alert, with orientation to person, place and time. Behavior, mood, and affect are within normal limits. 13:30 Abdomen/GI: Inspection: abdomen appears normal, Bowel sounds: normal, Palpation: soft, nontender, Rectal exam: Stool: normal, brown, guaiac negative, hemorrhoid(s), external, mass, is not appreciated, swelling, is not appreciated, tenderness, is not appreciated, fecal impaction, is not appreciated, the exam is chaperoned by the nurse. Vital Signs: 13:30 BP 126 / 81; Pulse 80; Resp 16; Temp 98.8(O); Pulse Ox 100% on R/A; Weight 81.65 kg; ab2 Height 5 ft. 9 in. (175.26 cm); Pain 0/10; 13:30 Body Mass Index 26.58 (81.65 kg, 175.26 cm) ab2 MDM: 13:30 Differential diagnosis: gastritis, diverticulitis, hemorrhoids. Data reviewed: vital ms3 signs, nurses notes, lab test result(s), occult blood. Data interpreted:. 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 ED course: Discussed negative bedside occult blood with patient and physical exam findings of small external hemorrhoid. Patient to follow-up with Dr. Ch the next 24 to 48 hours. Patient understands agrees with plan. All questions were answered. Return precautions discussed to include worsening symptoms, or any other concerns. On reevaluation patient's abdomen is benign, patient is in no apparent distress, nontoxic-appearing, speaking full sentences, ambulatory in emergency department.. 13:45 Patient medically screened. ms3 Administered Medications: No medications were administered Point of Care Testing: Guaiac: 13:45 Stool Guaiac: Negative; Stool Hemoccult Control: Pass; ms3 Disposition Summary: 11/06/21 13:46 Discharge Ordered Location: Home ms3 Condition: Stable ms3 Diagnosis - Rectal bleeding, External hemorrhoids ms3 Followup: ms3 - With: Kenneth Ch MD - When: 1 - 2 days - Reason: Recheck today's complaints Discharge Instructions: - Discharge Summary Sheet ms3 - Rectal Bleeding ms3 Forms: - Medication Reconciliation Form ms3 - Thank You Letter ms3 - Antibiotic Education ms3 - Prescription Opioid Use ms3 Signatures: Roger Prieto DO DO ms3 Jatinder Cisse
--- NOTE | 2021-11-06 13:47 | ER ---
Nurse's Notes [facility] Name: Ricky Garvin Age: 41 yrs Sex: Male : 1980 Arrival Date: 11/06/2021 Time: 13:28 Bed 20 Private MD: Diagnosis: Rectal bleeding, External hemorrhoids Presentation: 11/06 13:30 Chief complaint: Patient states: "I ate jalapeno poppers Odilia and since then I have ab2 had bloody stools." Pt denies pain. Coronavirus screen: Vaccine status: Patient reports receiving the 2nd dose of the covid vaccine. Client denies travel out of the [place] in the last 14 days. At this time, the client does not indicate any symptoms associated with coronavirus-19. Ebola Screen: Patient negative for fever greater than or equal to 101.5 degrees Fahrenheit, and additional compatible Ebola Virus Disease symptoms Patient denies exposure to infectious person. Patient denies travel to an Ebola-affected area in the 21 days before illness onset. No symptoms or risks identified at this time. Initial Sepsis Screen: Does the patient meet any 2 criteria? No. Patient's initial sepsis screen is negative. Does the patient have a suspected source of infection? No. Patient's initial sepsis screen is negative. Risk Assessment: Do you want to hurt yourself or someone else? Patient reports no desire to harm self or others. Onset of symptoms is unknown. 13:30 Method Of Arrival: Ambulatory ab2 13:30 Acuity: HANK 3 ab2 Triage Assessment: 13:34 General: Appears in no apparent distress. comfortable, Behavior is calm, cooperative, ab2 appropriate for age. Pain: Denies pain. GI: Reports bloody stool. Historical: - Allergies: 13:32 Azithromycin; ab2 - Home Meds: 13:32 gabapentin oral [Active]; Hydrocodone-Acetaminophen 5/500 Oral [Active]; ab2 - PMHx: 13:32 Herniated Disc; ab2 - PSHx: 13:32 None; ab2 - Immunization history:: Adult Immunizations up to date. - Social history:: Smoking status: Patient reports the use of cigarette tobacco products, denies chronic smoking, but will smoke occasionally. Screenin:59 Abuse screen: Denies threats or abuse. Nutritional screening: No deficits noted. jd3 Tuberculosis screening: No symptoms or risk factors identified. Fall Risk Ambulatory Aid- None/Bed Rest/Nurse Assist (0 pts). Gait- Normal/Bed Rest/Wheelchair (0 pts) Mental Status- Oriented to own ability (0 pts). Total Carlson Fall Scale indicates No Risk (0-24 pts). Assessment: 13:45 General: Appears in no apparent distress. comfortable, Behavior is calm, cooperative, jd3 appropriate for age. Pain: Denies pain. Neuro: Level of Consciousness is awake, alert, obeys commands, Oriented to person, place, time, situation. Cardiovascular: Capillary refill < 3 seconds Patient's skin is warm and dry. Respiratory: Airway is patent Respiratory effort is even, unlabored, Respiratory pattern is regular, symmetrical. GI: Reports bloody stool, Patient currently denies abdominal pain, diarrhea, nausea, vomiting. : No signs and/or symptoms were reported regarding the genitourinary system. EENT: No signs and/or symptoms were reported regarding the EENT system. Derm: Skin is intact, Skin is dry, Skin is normal, Skin temperature is warm. Musculoskeletal: Circulation, motion, and sensation intact. Range of motion: intact in all extremities. 13:45 Reassessment: Patient appears in no apparent distress at this time. Patient and/or jd3 family updated on plan of care and expected duration. Pain level reassessed. Patient is alert, oriented x 3, equal unlabored respirations, skin warm/dry/pink. pt reported understanding of discharge instructions and fallow-up care. even and steady gait upon discharge. Vital Signs: 13:30 BP 126 / 81; Pulse 80; Resp 16; Temp 98.8(O); Pulse Ox 100% on R/A; Weight 81.65 kg; ab2 Height 5 ft. 9 in. (175.26 cm); Pain 0/10; 13:30 Body Mass Index 26.58 (81.65 kg, 175.26 cm) ab2 ED Course: 13:28 Patient arrived in ED. am2 13:28 Roger Prieto DO is Attending Physician. ms3 13:32 Triage completed. ab2 13:34 Arm band placed on left wrist. ab2 13:46 Kenneth Ch MD is Referral Physician. ms3 13:57 Chester Chung RN is Primary Nurse. jd3 13:59 Patient has correct armband on for positive identification. Placed in gown. Bed in low jd3 position. Call light in reach. Side rails up X 1. Pulse ox on. NIBP on. 13:59 No provider procedures requiring assistance completed. Patient did not have IV access jd3 during this emergency room visit. Administered Medications: No medications were administered Point of Care Testing: Guaiac: 13:45 Stool Guaiac: Negative; Stool Hemoccult Control: Pass; ms3 Outcome: 13:46 Discharge ordered by . ms3 13:59 Discharged to home ambulatory. jd3 13:59 Condition: stable 13:59 Discharge instructions given to patient, Instructed on discharge instructions, follow up and referral plans. Demonstrated understanding of instructions, follow-up care. 13:59 Patient left the ED. jd3 Signatures: Annie Olea Jonathon RN RN jd3 Roger Prieto DO DO ms3 Jatinder Cisse2
[2021-11-06 14:22] VITALS: BP 126/81; TEMP 98.8; O2SAT 100
== END 2021-11-06 13:59 | disposition home or self-care (01) ==
LOC: ER 13:25
DX: K64.4 Residual hemorrhoidal skin tags (principal); F17.210 Nicotine dependence, cigarettes, uncomplicated; Z88.1 Allergy status to other antibiotic agents
CPT/HCPCS: 99283

== ENCOUNTER 2024-11-29 15:47 | Emergency (ER) | payer OTHER, SELFPAY ==
[2024-11-29] MEDS ORDERED: NA CHLORIDE 0.9% 1,000 ML ONE (16:40)
[2024-11-29 16:57] LABS: Absolute Basophils 0.1 K/uL (0-0.5); Absolute Eosinophils 0.1 K/uL (0-0.5); Absolute Lymphocytes (CBC) 2.5 K/uL (0.7-4.9); Absolute Monocytes 0.3 K/uL (0.1-1.3); Absolute Neutrophil 3.9 K/uL (1.8-8.0); Basophils % 1.7 % (0-1.3); Eosinophils % 0.8 % (0-4.4); Hematocrit 40.6 % (39.6-49.0); Hemoglobin 14.1 g/dL (13.6-17.9); Lymphocytes % 36.8 % (15.3-44.8); MCH 29.7 pg (27.0-35.0); MCHC 34.8 g/dL (32.0-36.0); MCV 85.5 fL (80-100); MPV 9.1 fL (7.6-11.3); Neutrophils % 55.7 % (41.7-73.7); Nucleated Red Blood Cells % 0.1 % (0-0); Platelets 268 thou/uL (152-406); RBC Red Blood Cell Count 4.75 M/uL (4.33-5.43); Red Cell Distribution Width 13.7 % (12.1-15.2)
[2024-11-29 17:12] LABS: Anion Gap 11.6 mEq/L (5.0-15.0); Potassium 3.6 mEq/L (3.5-5.1); Troponin High Sensitivity 3.4 pg/mL (<58.9)
--- NOTE | 2024-11-29 17:37 | RAD REPORT ---
Procedure: Chest Single View HISTORY: Cough COMPARISON: 2019 FINDINGS: The lungs appear clear of acute infiltrate. No significant pleural effusion noted. The heart is normal size. IMPRESSION: No acute abnormality is displayed.
[2024-11-29] MEDS ORDERED: METFORMIN HCL 500 MG TAB ONE (19:28)
--- NOTE | 2024-11-29 19:35 | ER ---
Nurse's Notes [facility] Name: Ricky Garvin Age: 44 yrs Sex: Male : 1980 Arrival Date: 11/29/2024 Time: 15:47 Bed 15 Private MD: Diagnosis: Hyperglycemia, unspecified;Diabetes mellitus due to underlying condition with hyperglycemia Presentation: 11/29 15:59 Chief complaint: Patient states: had a physical done for his job and they sent him to urgent care for a work release but they said his BP was to high and there glucose urine and they checked ga BS and it was 308 , no hx of diabetes. Coronavirus screen: At this time, the client does not indicate any symptoms associated with coronavirus-19. Ebola Screen: No symptoms or risks identified at this time. Initial Sepsis Screen: Does the patient meet any 2 criteria? No. Patient's initial sepsis screen is negative. Does the patient have a suspected source of infection? No. Patient's initial sepsis screen is negative. Risk Assessment: Do you want to hurt yourself or someone else? Patient reports no desire to harm self or others. 15:59 Method Of Arrival: Ambulatory 15:59 Acuity: HANK 3 iw 16:01 Chief complaint: Patient states: pt states he has been drinking a lot of water and iw urinating a lot. 20:00 Onset of symptoms Onset of symptoms was November 29, 2024. ha1 Triage Assessment: 16:00 General: Appears in no apparent distress. comfortable, Behavior is calm, cooperative, bp appropriate for age. Pain: Denies pain. EENT: No deficits noted. Neuro: No deficits noted. Cardiovascular: No deficits noted. Respiratory: No deficits noted. GI: No signs and/or symptoms were reported involving the gastrointestinal system. : No signs and/or symptoms were reported regarding the genitourinary system. Derm: No deficits noted. Musculoskeletal: No deficits noted. Historical: - Allergies: 16:02 Azithromycin; iw - PMHx: 16:02 Herniated disc; iw - Immunization history:: Adult Immunizations not up to date. - Infectious Disease History:: Denies. - Social history:: Smoking status: Patient/guardian denies using tobacco. - Family history:: not pertinent. - Hospitalizations: : No recent hospitalization is reported. Screenin:00 [facility] ED Fall Risk Assessment (Adult) History of falling in the last 3 months, bp including since admission No falls in past 3 months (0 pts) Confusion or Disorientation No (0 pts) Intoxicated or Sedated No (0 pts) Impaired Gait No (0 pts) Mobility Assist Device Used No (0 pt) Altered Elimination No (0 pt) Score/Fall Risk Level 0 - 2 = Low Risk Oriented to surroundings. Abuse screen: Denies threats or abuse. Denies injuries from another. Nutritional screening: No deficits noted. Tuberculosis screening: No symptoms or risk factors identified. Assessment: 16:00 General: Appears in no apparent distress. comfortable, Behavior is calm, cooperative, bp appropriate for age. 18:37 Reassessment: Patient appears in no apparent distress at this time. Patient is alert, bp oriented x 3, equal unlabored respirations, skin warm/dry/pink. Patient states feeling better. 19:20 General: Appears in no apparent distress. comfortable, Behavior is calm, cooperative. jr13 Pain: Denies pain. Neuro: No deficits noted. Level of Consciousness is awake, alert, obeys commands, Oriented to person, place, time, situation, Appropriate for age. Cardiovascular: No deficits noted. Capillary refill < 3 seconds Patient's skin is warm and dry. Derm: Skin is intact, is healthy with good turgor. Vital Signs: 16:01 BP 153 / 102; Pulse 110; Resp 16; Temp 98.2; Pulse Ox 96% on R/A; Weight 94.8 kg; iw 18:37 BP 127 / 73; Pulse 90; Resp 16; Pulse Ox 99% ; bp ED Course: 15:52 Patient arrived in ED. al6 15:59 Edmond Martins MD is Attending Physician. rn 16:00 Patient has correct armband on for positive identification. bp 16:01 Triage completed. iw 16:04 Arm band placed on. iw 16:12 Yordy Spencer, RN is Primary Nurse. bp 16:36 EKG completed in triage. Results shown to . iw 16:38 Initial lab(s) drawn, by me, sent to lab. EKG done, by ED staff, reviewed by Edmond Martins MD. Inserted saline lock: 20 gauge in left antecubital area, using aseptic technique. Blood collected. Flushed with 10 mL NS. 16:52 XRAY Chest (1 view) In Process Unspecified. EDMS 20:03 No provider procedures requiring assistance completed. IV discontinued, intact, jr13 bleeding controlled, No redness/swelling at site. Pressure dressing applied. 20:06 Provided Education on: Educated on follow-up care and prescription medication. jr13 Administered Medications: 16:30 Drug: NS 0.9% IV 1000 ml IV at 1000 ml once; to be given as a bolus over 60 minutes bp Route: IV; Rate: 1000 ml; Site: left antecubital; 20:04 Follow up: Response: No adverse reaction; IV Status: Completed infusion; IV Intake: jr13 1000ml 19:30 Drug: metFORMIN PO 500 mg PO once; with meal or snack Route: PO; jr13 20:03 Follow up: Response: No adverse reaction; Blood sugar is lowered jr13 Medication: 16:00 VIS not applicable for this client. bp Intake: 20:04 IV: 1000ml; Total: 1000ml. jr13 Outcome: 19:34 Discharge ordered by . rn 20:05 Discharged to home ambulatory, jr13 20:05 Condition: stable 20:05 Discharge instructions given to patient, Instructed on discharge instructions, follow up and referral plans. Demonstrated understanding of instructions, follow-up care, medications, Prescriptions given X 1, 20:07 Patient left the ED. jr13 Signatures: Dispatcher [employer] EDRadha Phan, RN Edmond Humphreys MD MD rn Peltier, Brian, RN RN bp Ayala, Heidy, RN RN ha1 Sofia Hughes al6 Shahnaz Dawson kb4 Krishna Cassidy, RN RN jr13 Corrections: (The following items were deleted from the chart) 16:05 16:01 BP 153 / 102; Pulse 110bpm; Resp 16bpm; Pulse Ox 96% RA; Temp 98.2F; iw iw
--- NOTE | 2024-11-29 19:35 | EDPHYS ---
Physician Documentation [facility] Name: Ricky Garvin Age: 44 yrs Sex: Male : 1980 Arrival Date: 11/29/2024 Time: 15:47 Bed 15 Private MD: ED Physician Edmond Martins HPI: 11/29 16:41 This 44 yrs old Black Male presents to ER via Ambulatory with complaints of High Blood rn Pressure. 17:28 The patient has elevated blood pressure and discovered this during work physical. rn Onset: The symptoms/episode began/occurred today. Modifying factors:. Patient reports was at work physical and told to come to the emergency room for high blood sugar in the 300s and high blood pressure. Patient reports intermittent chest pain, not sure how long it has been happening but reports lasts only a few seconds. No fever or chills. No vomiting or diarrhea. No abdominal or back pain. No shortness of breath. Patient denies history of known diabetes or hypertension. Does not take any medication.. Historical: - Allergies: 16:02 Azithromycin; iw - PMHx: 16:02 Herniated disc; iw - Immunization history:: Adult Immunizations not up to date. - Infectious Disease History:: Denies. - Social history:: Smoking status: Patient/guardian denies using tobacco. - Family history:: not pertinent. - Hospitalizations: : No recent hospitalization is reported. ROS: 17:28 Constitutional: Negative for fever, chills, and weight loss, Neck: Negative for injury, rn pain, and swelling, Cardiovascular: Negative for palpitations, and edema, Respiratory: Negative for shortness of breath, cough, wheezing, and pleuritic chest pain, Abdomen/GI: Negative for abdominal pain, nausea, vomiting, diarrhea, and constipation, Back: Negative for injury and pain, MS/Extremity: Negative for injury and deformity, Skin: Negative for injury, rash, and discoloration, Neuro: Negative for headache, weakness, numbness, tingling, and seizure, Exam: 17:22 ECG was reviewed by the Attending Physician. rn 17:28 Constitutional: This is a well developed, well nourished patient who is awake, alert, rn and in no acute distress. Head/Face: Normocephalic, atraumatic. ENT: Dry mucous membranes Cardiovascular: Tachycardic, regular. No pulse deficits. Respiratory: No increased work of breathing, no retractions or nasal flaring. Abdomen/GI: Soft, non-tender, no masses MS/ Extremity: Pulses equal, no cyanosis. Neuro: Awake and alert, GCS 15, oriented to person, place, time, and situation. Cranial nerves II-XII grossly intact. Motor strength 5/5 in all extremities. Sensory grossly intact. Cerebellar exam normal. Normal gait. Vital Signs: 16:01 BP 153 / 102; Pulse 110; Resp 16; Temp 98.2; Pulse Ox 96% on R/A; Weight 94.8 kg; iw 18:37 BP 127 / 73; Pulse 90; Resp 16; Pulse Ox 99% ; bp MDM: 15:59 Medical Screening Exam initiated rn 19:33 Differential diagnosis: Hypertension, asymptomatic hypertension hyperglycemia, statistics intern. Data reviewed: vital signs, nurses notes, lab test result(s), EKG, radiologic studies, plain films, and as a result, I will discharge patient. Counseling: I had a detailed discussion with the patient and/or guardian regarding the historical points, exam findings, and any diagnostic results supporting the discharge/admit diagnosis, lab results, radiology results, the need for outpatient follow up, to return to the emergency department if symptoms worsen or persist or if there are any questions or concerns that arise at home. Response to treatment: the patient's symptoms have markedly improved after treatment, and as a result, I will discharge patient. Special discussion: I discussed with the patient/guardian in detail that at this point there is no indication for admission to the hospital. It is understood, however, that if the symptoms persist or worsen the patient needs to return immediately for re-evaluation. Based on the history and exam findings, there is no indication for further emergent testing or inpatient evaluation. I discussed with the patient/guardian the need to see the primary care provider for further evaluation of the symptoms. ED course: No evidence of DKA. No indication for emergent admission to the hospital for blood pressure or diabetes. BP down to 127/73 without intervention. Will discharge home with prescription for metformin and urged to follow-up closely with PCP. Patient states has to follow-up as he needs clearance for work.. 11/29 16:07 Order name: CBC with Diff; Complete Time: 17:09 rn 11/29 16:07 Order name: Basic Metabolic Panel; Complete Time: 17:14 rn 11/29 16:07 Order name: NT PRO-BNP; Complete Time: 17:14 rn 11/29 16:07 Order name: Troponin HS; Complete Time: 17:14 rn 11/29 16:25 Order name: Glucose, Ancillary Testing; Complete Time: 17:09 EDMS 11/29 16:07 Order name: XRAY Chest (1 view); Complete Time: 17:53 rn 11/29 16:07 Order name: IV Start; Complete Time: 16:49 rn 11/29 16:07 Order name: Cardiac monitoring; Complete Time: 16:40 rn 11/29 16:07 Order name: EKG - Nurse/Tech; Complete Time: 16:40 rn 11/29 16:07 Order name: Labs collected and sent; Complete Time: 16:40 rn 11/29 16:07 Order name: O2 Per Protocol; Complete Time: 16:40 rn 11/29 16:07 Order name: O2 Sat Monitoring; Complete Time: 16:40 rn 11/29 16:07 Order name: Glucose Level; Complete Time: 16:40 rn EC:22 Rate is 99 beats/min. Rhythm is regular. QRS [place] is Normal. CT interval is normal. QRS rn interval is normal. QT interval is normal. No Q waves. T waves are Normal. No ST changes noted. Clinical impression: Normal ECG. Interpreted by me. Reviewed by me. Administered Medications: 16:30 Drug: NS 0.9% IV 1000 ml IV at 1000 ml once; to be given as a bolus over 60 minutes bp Route: IV; Rate: 1000 ml; Site: left antecubital; 20:04 Follow up: Response: No adverse reaction; IV Status: Completed infusion; IV Intake: jr13 1000ml 19:30 Drug: metFORMIN PO 500 mg PO once; with meal or snack Route: PO; jr13 20:03 Follow up: Response: No adverse reaction; Blood sugar is lowered jr13 Disposition Summary: 11/29/24 19:34 Discharge Ordered Notes: Location: Home rn Problem: an ongoing problem rn Symptoms: have improved rn Condition: Stable rn Diagnosis - Hyperglycemia, unspecified rn - Diabetes mellitus due to underlying condition with hyperglycemia rn Followup: rn - With: Private Physician - When: As needed - Reason: Recheck today's complaints, Re-evaluation by your physician Discharge Instructions: - Discharge Summary Sheet rn - Hyperglycemia rn - Hypertension, Adult rn - Blood Glucose Monitoring, Adult rn Forms: - Medication Reconciliation Form rn - Antibiotic claims attorney - Prescription Opioid Use rn - Patient Portal Instructions rn - Leadership Thank You Letter rn Prescriptions: - Metformin 500 mg Oral tablet - take 1 tablet ORAL route once daily for 7 days Then take 1 tablet with morning rn meals AND evening meals; 60 tablet; Refills: 0, Product Selection Permitted Signatures: Dispatcher [employer] Radha Jose, RN RN Edmond Yee MD MD rn Peltier, Brian RN Krishna Zapata RN RN jr13
[2024-11-29 20:12] VITALS: TEMP 98.2
[2024-11-29 20:14] VITALS: BP 127/73; O2SAT 99
--- NOTE | 2024-12-01 13:32 | EKG ---
Test Date: 2024-11-29 Test Time: 16:32:17 [employer]: BHARAT MEASUREMENT RESULTS: Intervals: Rate: 99 GA: 146 QRSD: 88 QT: 328 QTc: 420 [place]: P: 62 GA: 146 QRS: 46 T: 62 INTERPRETIVE STATEMENTS: Normal sinus rhythm Normal ECG Compared to ECG 10/03/2019 22:53:50 Sinus tachycardia no longer present Electronically Signed On 12-01-24 13:20:06 CDT by Dax Rashid
== END 2024-11-29 20:07 | disposition home or self-care (01) ==
LOC: ER 15:47
DX: E11.65 Type 2 diabetes mellitus with hyperglycemia (principal)
CPT/HCPCS: 36415; 71045; 80048; 82947; 83880; 84484; 85025; 93005; 96360; 96361; 99284; J7030